=== PATIENT | male | born 1960 | race African-American/Black ===

== ENCOUNTER 2022-03-27 10:57 | Emergency (ER) | payer OTHER, SELFPAY | END 2022-03-27 13:43 | disposition home or self-care (01) | LOC: CSHERS 10:57 | DX: J01.90 Acute sinusitis, unspecified (principal); B96.89 Other specified bacterial agents as the cause of diseases classified elsewhere; H60.93 Unspecified otitis externa, bilateral; I10 Essential (primary) hypertension; E11.9 Type 2 diabetes mellitus without complications; F17.200 Nicotine dependence, unspecified, uncomplicated | CPT/HCPCS: 36416; 99282 ==